=== PATIENT | female | born 1995 | race Caucasian/White ===

== ENCOUNTER 2021-07-27 16:29 | Emergency (ER) | payer SELFPAY ==
[~2021-07-27] VITALS: Ht 157.5 cm; Wt 52.2 kg
[2021-07-27 17:12] VITALS: BP 116/69
[2021-07-27] MEDS ORDERED: AMOX500T86 PO (17:14)
[2021-07-27] MEDS ORDERED: TETANUS-DIPTH-ACEL PERTUSSIS 0.5ML SYR Tdap IM ONE (17:15)
== END 2021-07-27 17:46 | disposition home or self-care (01) ==
LOC: ER 16:33
DX: S61.432A Puncture wound without foreign body of left hand, initial encounter (principal); W54.0XXA Bitten by dog, initial encounter; Y93.89 Activity, other specified; Y92.89 Other specified places as the place of occurrence of the external cause; Y99.8 Other external cause status
CPT/HCPCS: 90471; 90715